=== PATIENT | male | born 1935 | race Caucasian/White ===

== ENCOUNTER 2016-09-12 15:24 | Inpatient (IN) | payer OTHER ==
[~2016-09-12] VITALS: Ht 188 cm; Wt 78.3 kg
[~2016-09-12 15:24] MED LIST: ASCORBIC ACID500 M3 PO; ASPIRIN EC325 MG PO; ASPIRIN81 M2 PO; CALCIUM CARB1 TABLET PO; FLONASE16 G1 BOTH NARES; FOLIC ACID1 MG PO; OXYCODONE HCL5 MG PO; PLENDIL10 MG PO; PRINIVIL20 MG PO; PROTONIX PO; SENNA-TIME S T1 EACH PO; THERAGRAN1 TABLET PO; VYTORIN 10/21 TABLET PO; ZOCOR10 MG PO
[2016-09-12 17:01] LABS: EOSINOPHIL (%) 0.2 % (0-5); HEMATOCRIT 45.6 % (38.0-50.0); IMMATURE GRANULOCYTE (%) 0.6 % (0.0-0.7); IMMATURE GRANULOCYTE COUNT 0.1 K/uL; INSTRUMENT ABS NEUTROPHIL CT 10.6 K/uL; LYMPHOCYTE COUNT 1.2 K/uL (1.0-2.8); MCH 29.5 PG (29.0-34.0); MCHC 33.1 G/DL (30.0-36.0); MCV 89.2 FL (86-99); MEAN PLAT.VOLUME 9.7 uM^3 (9.0-12.4); MONOCYTE (%) 5.9 % (3-12); MONOCYTE COUNT 0.8 K/uL (0-0.8); NEUTROPHIL (%) 83.8 % (45-76); NEUTROPHIL COUNT 10.6 K/uL (1.8-6.4); PLATELET COUNT 176 K/uL (156-360); RBC DIS.WIDTH-CV 12.2 % (11.8-14.6); RBC DIS.WIDTH-SD 40.1 % (39-53); RED BLOOD COUNT 5.11 M/uL (4.00-5.50); WHITE BLOOD COUNT 12.6 K/uL (4.1-10.2)
[2016-09-12 17:13] LABS: CHLORIDE 105 mEq/L (99-109); POTASSIUM 4.3 mEq/L (3.7-5.4); SODIUM 141 mEq/L (136-147)
[2016-09-12 17:15] LABS: GLUCOSE 113 mg/dL (70-99)
[2016-09-12 17:16] LABS: ANION GAP 11 MEQ/L (2-14)
[2016-09-12 17:19] LABS: GFR ESTIMATE (CALCULATED) > 59 mL/min/; UREA NITROGEN (BUN) 14 mg/dL (9-23)
[2016-09-12] MEDS ORDERED: CENTRUM SILVER1 EAC3 PO (17:32)
[2016-09-12] MEDS ORDERED: PROTONIX40 MG PO (17:32)
[2016-09-12 19:14] LABS: ADD MIUA? NO; BILIRUBIN NEGATIVE; BLOOD NEGATIVE; COLOR YELLOW ((YELLOW)); GLUCOSE (STRIP) NEGATIVE; KETONES NEGATIVE; LEUKOCYTES NEGATIVE; NITRITE NEGATIVE; PROTEIN (STRIP) NEGATIVE; SPECIFIC GRAVITY 1.016 (1.000-1.030); UCUL ADDED? NO; UROBILINOGEN 0.2 MG/DL (0.2-1.0)
[2016-09-12 20:50] VITALS: BP 185/81
[2016-09-13] VITALS (7 sets, daily range): BP systolic 139–160; BP diastolic 61–75
[2016-09-13 10:54] LABS: INTER. NORMALIZED RATIO 1.1; PROTHROMBIN TIME 11.2 (9.2-11.2); PTT 29.4 (25-32)
[2016-09-13 22:34] LABS: HEMATOCRIT 41.3 % (38.0-50.0); MCH 29.7 PG (29.0-34.0); MCHC 32.4 G/DL (30.0-36.0); MCV 91.6 FL (86-99); RBC DIS.WIDTH-CV 12.1 % (11.8-14.6); RBC DIS.WIDTH-SD 40.9 % (39-53); RED BLOOD COUNT 4.51 M/uL (4.00-5.50); WHITE BLOOD COUNT 11.1 K/uL (4.1-10.2)
[2016-09-13 23:15] LABS: MEAN PLAT.VOLUME 9.7 uM^3 (9.0-12.4); PLAT.SUFFICIENCY DECREASED; PLATELET COUNT 121 K/uL (156-360)
[2016-09-14 04:35] VITALS: BP 125/56
[2016-09-14 07:55] LABS: HEMATOCRIT 36.4 % (38.0-50.0); MCV 92.6 FL (86-99)
[2016-09-14 08:23] LABS: ANION GAP 7 MEQ/L (2-14); CHLORIDE 103 MEQ/L (99-109); GFR ESTIMATE (CALCULATED) > 59 mL/min/; GLUCOSE 130 mg/dL (70-99); SAMPLE HEMOLYSIS CHECK 0; SAMPLE ICTERIC CHECK 1; SAMPLE LIPEMIA CHECK 0; SODIUM 139 MEQ/L (136-147); UREA NITROGEN (BUN) 10 mg/dL (9-23)
[2016-09-14 08:26] VITALS: BP 149/65
[2016-09-14 12:01] VITALS: BP 110/53; BP 128/59
[2016-09-14 15:48] VITALS: BP 171/89
[2016-09-14 19:48] VITALS: BP 131/60
[2016-09-15 00:30] VITALS: BP 125/58
[2016-09-15 04:07] VITALS: BP 114/51
[2016-09-15 08:04] VITALS: BP 118/56
[2016-09-15 08:13] LABS: HEMATOCRIT 31.8 % (38.0-50.0); MCV 91.6 FL (86-99)
[2016-09-15 10:58] VITALS: BP 118/56
[2016-09-15 16:45] VITALS: BP 116/54
[2016-09-15 23:25] VITALS: BP 122/55
[2016-09-16 04:46] VITALS: BP 134/60
[2016-09-16 07:24] VITALS: BP 111/58
[2016-09-16 11:11] VITALS: BP 119/56
[2016-09-16 16:26] VITALS: BP 147/69
[2016-09-16 19:34] VITALS: BP 121/56
[2016-09-17] VITALS (7 sets, daily range): BP systolic 117–143; BP diastolic 56–67
[2016-09-17 15:00] LABS: MCH 30.1 PG (29.0-34.0); MCHC 33.4 G/DL (30.0-36.0); MCV 90.1 FL (86-99); MEAN PLAT.VOLUME 9.6 uM^3 (9.0-12.4); PLATELET COUNT 155 K/uL (156-360); RBC DIS.WIDTH-CV 11.9 % (11.8-14.6); RBC DIS.WIDTH-SD 39.3 % (39-53)
[2016-09-17 15:06] LABS: RED BLOOD COUNT 3.22 M/uL (4.00-5.50)
[2016-09-18 04:10] VITALS: BP 139/65
[2016-09-18 07:37] VITALS: BP 143/66
[2016-09-18] MEDS ORDERED: LOVENOX40 MG/0.4 SC (09:01)
[2016-09-18] MEDS ORDERED: SENNA PLUS TAB1 EACH PO (09:01)
[2016-09-18] MEDS ORDERED: HYDROCODON-ACE1 EAC7 PO (09:01)
[2016-09-18 11:26] VITALS: BP 118/58
[2016-09-18] MEDS ORDERED: MIRALAX17 GM PO (14:36)
== END 2016-09-18 12:55 | DRG 470 ==
LOC: EME → EDBD 15:24 → EME 15:24 → 3EAST 17:13 → EDOF 17:13 → 3EAST 20:01
PROVIDERS: Emergency Medicine; Orthopaedic Surgery; Orthopaedic Surgery Sports Medicine; Physician Assistant
PROC: 0SRR0JA Replacement of Right Hip Joint, Femoral Surface with Synthetic Substitute, Uncemented, Open Approach (ICD-10-PCS; principal; 2016-09-13)
DX: S72.011A Unspecified intracapsular fracture of right femur, initial encounter for closed fracture (principal); R58 Hemorrhage, not elsewhere classified; D62 Acute posthemorrhagic anemia; R06.02 Shortness of breath; W18.09XA Striking against other object with subsequent fall, initial encounter; Y93.01 Activity, walking, marching and hiking; M25.561 Pain in right knee; I10 Essential (primary) hypertension; K21.9 Gastro-esophageal reflux disease without esophagitis; Z87.891 Personal history of nicotine dependence; Y92.481 Parking lot as the place of occurrence of the external cause; E78.00 Pure hypercholesterolemia, unspecified
CPT/HCPCS: 71010; 73501; 73502; 73552; 73560; 80048; 81003; 85014; 85018; 85025; 85027; 85610; 85730; 86900; 86901; 93005; 94799; 97530 GP; 99281; 99285; J0690; J1170; J1650; J2270; J2405; J3010; J7030

== ENCOUNTER 2016-09-18 09:01 | Inpatient (IN) | payer OTHER ==
[~2016-09-18] VITALS: Ht 188 cm; Wt 79.1 kg
[~2016-09-18 09:01] MED LIST changes: +CENTRUM SILVER1 EAC3 PO; +HYDROCODON-ACE1 EAC7 PO; +LOVENOX40 MG/0.4 SC; +PROTONIX40 MG PO; +SENNA PLUS TAB1 EACH PO
[2016-09-18 13:24] VITALS: BP 132/63
[2016-09-18] MEDS ORDERED: MIRALAX17 GM PO (14:36)
[2016-09-18 16:33] VITALS: BP 154/67
[2016-09-19 00:35] VITALS: BP 149/68
[2016-09-19 05:41] VITALS: BP 156/67
[2016-09-19 07:18] LABS: ALKALINE PHOSPHATASE 77 IU/L (3-129); ANION GAP 8 MEQ/L (2-14); CHLORIDE 104 MEQ/L (99-109); GFR ESTIMATE (CALCULATED) > 59 mL/min/; GLUCOSE 104 mg/dL (70-99); POTASSIUM 4.2 MEQ/L (3.7-5.4); SAMPLE HEMOLYSIS CHECK 0; SAMPLE ICTERIC CHECK 1; SAMPLE LIPEMIA CHECK 0; SODIUM 141 MEQ/L (136-147); TOTAL BILIRUBIN 3.4 MG/DL (0.0-1.0); UREA NITROGEN (BUN) 10 mg/dL (9-23)
[2016-09-19 07:19] LABS: HEMATOCRIT 30.2 % (38.0-50.0); MCH 29.6 PG (29.0-34.0); MCHC 32.5 G/DL (30.0-36.0); MCV 91.2 FL (86-99); MEAN PLAT.VOLUME 9.7 uM^3 (9.0-12.4); RBC DIS.WIDTH-CV 12.3 % (11.8-14.6); RBC DIS.WIDTH-SD 40.9 % (39-53); RED BLOOD COUNT 3.31 M/uL (4.00-5.50); WHITE BLOOD COUNT 5.9 K/uL (4.1-10.2)
[2016-09-19 07:21] LABS: PLATELET COUNT 213 K/uL (156-360)
[2016-09-19 16:03] VITALS: BP 125/61
[2016-09-20 04:30] VITALS: BP 132/60
[2016-09-20 06:47] LABS: ALKALINE PHOSPHATASE 79 IU/L (3-129); DIRECT BILIRUBIN 0.5 mg/dL (0.0-0.3); TOTAL BILIRUBIN 3.3 MG/DL (0.0-1.0)
[2016-09-20 15:58] VITALS: BP 140/65
[2016-09-21 04:20] VITALS: BP 149/66
[2016-09-21 06:55] LABS: LACTATE DEHYDROGENASE 176 IU/L (20-246)
[2016-09-21 11:16] LABS: ALKALINE PHOSPHATASE 81 IU/L (3-129); DIRECT BILIRUBIN 0.5 mg/dL (0.0-0.3); TOTAL BILIRUBIN 3.1 MG/DL (0.0-1.0)
[2016-09-21 15:30] VITALS: BP 134/61
[2016-09-22 05:47] VITALS: BP 138/77
[2016-09-22 15:21] VITALS: BP 119/56
[2016-09-23 05:42] VITALS: BP 130/60
[2016-09-23] MEDS ORDERED: FOLIC ACID1 MG PO (07:39)
[2016-09-23] MEDS ORDERED: ASCORBIC ACID500 M3 PO (07:39)
[2016-09-23] MEDS ORDERED: CELECOXIB200 MG PO (07:39)
[2016-09-23] MEDS ORDERED: VITAMIN D-32000 UNI2 PO (07:39)
[2016-09-23 07:49] LABS: ALKALINE PHOSPHATASE 95 IU/L (3-129); ANION GAP 9 MEQ/L (2-14); CHLORIDE 102 MEQ/L (99-109); GFR ESTIMATE (CALCULATED) > 59 mL/min/; GLUCOSE 98 mg/dL (70-99); POTASSIUM 4.3 MEQ/L (3.7-5.4); SAMPLE HEMOLYSIS CHECK 0; SAMPLE ICTERIC CHECK 0; SAMPLE LIPEMIA CHECK 0; SODIUM 139 MEQ/L (136-147); TOTAL BILIRUBIN 2.7 MG/DL (0.0-1.0); UREA NITROGEN (BUN) 16 mg/dL (9-23)
[2016-09-23 15:03] VITALS: BP 118/65
[2016-09-24 04:19] VITALS: BP 112/53
== END 2016-09-24 14:00 | disposition home health service (06) | DRG 560 ==
LOC: 3WEST 09:01
PROVIDERS: Internal Medicine Gastroenterology; Physical Medicine & Rehabilitation Pain Medicine
PROC: F07M0ZZ Range of Motion and Joint Mobility Treatment of Musculoskeletal System - Whole Body (ICD-10-PCS; principal; 2016-09-18)
DX: Z47.1 Aftercare following joint replacement surgery (principal); S72.001S Fracture of unspecified part of neck of right femur, sequela; R26.2 Difficulty in walking, not elsewhere classified; G89.18 Other acute postprocedural pain; Z96.641 Presence of right artificial hip joint; K21.9 Gastro-esophageal reflux disease without esophagitis; I10 Essential (primary) hypertension; E78.00 Pure hypercholesterolemia, unspecified; K76.89 Other specified diseases of liver; M47.894 Other spondylosis, thoracic region; D62 Acute posthemorrhagic anemia; D69.6 Thrombocytopenia, unspecified; R78.89 Finding of other specified substances, not normally found in blood
CPT/HCPCS: 76705; 80053; 80076; 83010 90; 83615; 85027; 93971; 97110 GO; 97530 GP; J1650

== ENCOUNTER 2017-03-19 14:04 | Emergency (ER) | payer OTHER ==
[~2017-03-19] VITALS: Ht 188 cm; Wt 75.5 kg
[~2017-03-19 14:04] MED LIST changes: +CELECOXIB200 MG PO; +MIRALAX17 GM PO; +VITAMIN D-32000 UNI2 PO
[2017-03-19] MEDS ORDERED: NORCO 5/3251 TABLET PO (15:55)
[2017-03-19 16:39] VITALS: BP 162/78
== END 2017-03-19 16:45 | disposition home or self-care (01) ==
LOC: EME 14:04
DX: S12.100A Unspecified displaced fracture of second cervical vertebra, initial encounter for closed fracture (principal); S00.83XA Contusion of other part of head, initial encounter; W19.XXXA Unspecified fall, initial encounter; I10 Essential (primary) hypertension; E78.5 Hyperlipidemia, unspecified; Z87.891 Personal history of nicotine dependence
CPT/HCPCS: 99281; 99284